=== PATIENT | female | born 1950 | race Caucasian/White ===

== ENCOUNTER 2016-05-14 08:09 | Day surgery (SDC) | payer MEDICARE, OTHER ==
[~2016-05-14] VITALS: Ht 167.6 cm; Wt 82.5 kg
--- NOTE | 2016-05-14 07:29 | PCM.HPANE ---
Patient Data Surgeon Admitting Provider: Attending Provider:Pio Nicholson MD Primary Care Physician:Reggie Fuller MD Other Provider:Freya Painteringham Anesthesia Reason for Visit Colon Polyps, Dysphagia Ht/WT & BMI Body Mass Index Allergies Coded Allergies: methotrexate (Verified Allergy, Severe, seizure, 03/02/16) metoclopramide (Verified Allergy, Severe, SEIZURES, 03/02/16) SEIZURES. moxifloxacin HCl (Verified Allergy, Unknown, restlessness, 03/02/16) haloperidol (Verified Adverse Reaction, Severe, 03/02/16) disoriented, restless, "felt like I was going to " metronidazole (Verified Adverse Reaction, Intermediate, Diarrhea, nausea, vomiting, 03/02/16) Past Anesthesia History Anesthesia History: Denies:: Abnormal Airway, Anesthesia Reactions, Difficult Intubation Diabetes History Hx Diabetes?: Yes MRSA MRSA: No Medications Active Scripts oxyCODONE 5 Mg Tablet5-10 Mg PO Q4H PRN For Moderate Pain #10 TABLET Prov:Areli Pierson MD 02/17/[address] 40 Mg Tablet.dr40 Mg PO BID Ref 0 05/13/16 Glucagon HCl 1 Mg Vial1 Mg IJ 05/13/16 Epinephrine (Epipen 2-Irineo)0.3 Mg/0.3 Ml Auto.injct0.3 Mg IJ 05/13/16 Lorazepam (Ativan)1 Mg Tablet1 Mg PO HS PRN For Insomnia Ref 0 05/13/16 Alendronate 40 Mg Ztcbdr77 Mg PO WEEKLY Ref 0 05/13/16 Metoprolol Succinate ER (Toprol XL)25 Mg Grgelo44 Mg PO DAILY Ref 0 05/13/16 Prednisone (PredniSONE)10 Mg Xvekxb89 Mg PO DAILY Ref 0 05/13/16 Levothyroxine 125 Mcg Zjbfdf095 Mcg PO fri/fri/fri/sat For Thyroid Replacement Ref 0 03/14/16 Cetirizine HCl (24Hour Allergy)10 Mg Hfbhyz93 Mg PO DAILY 03/14/16 Atorvastatin Calcium 40 Mg Flgwwe36 Mg PO DAILY Ref 0 03/14/16 Metoclopramide 10 Mg Pwoywi69 Mg PO TIDAC Ref 0 03/14/16 Sennosides (Senna)8.6 Mg Tablet1-3 Tablet PO PRN For Constipation 03/14/16 Fluticasone Propionate (Flovent Diskus)50 Mcg Disk.w.devUnknown Dose IH BID #1 INHALER Ref 0 03/02/16 Insulin Aspart (NovoLOG U-100 Pen)100 Unit/Ml Insuln.pen10 Units SC QID PRN bg > 300 #15 03/02/16 Insulin Aspart (NovoLOG U100 Insulin Vial)100 Unit/Ml Mdv1 Dose SC DIRECTED # 60 per insulin pump 03/02/16 Meloxicam (Mobic)7.5 Mg Tablet7.5 Mg PO BID 30 Days Ref 0 02/17/16 Albuterol Neb Soln 2.5 Mg/3 Ml Vial.neb2.5 Mg INHALATION Q4H Ref 0 02/17/16 Albuterol Sulfate (Ventolin HFA Inhaler)200 Puff/18 Gm Inhaler1 INH Q4H PRN For Wheezing #1 INHALER Ref 0 02/17/16 Montelukast (Singulair)10 Mg Rarqla82 Mg PO HS Ref 0 02/17/16 Lisinopril 20 Mg Dorfxq89 Mg PO HS 30 Days Ref 0 02/17/16 Levothyroxine (Synthroid)137 Mcg Wekqto117 Mcg PO tu/thur/goodson Ref 0 02/17/16 Discontinued Reported Medications Prednisone (PredniSONE)5 Mg Tab5 Mg PO DAILY Ref 0 04/04/16 Tramadol 50 Mg Ottyxa67 Mg PO Q4H PRN For Pain Ref 0 03/14/16 Sulfamethoxazole/Trimeth 800-160 mg (Bactrim DS)1 Each Tablet1 Tablet PO BID Ref 0 03/14/16 Temazepam 30 Mg Cap30 Mg PO HS PRN For Insomnia Ref 0 03/14/16 Lorazepam 1 Mg Tablet1 Mg PO DIRECTED PRN For Anxiety #10 03/02/16 Gabapentin (Neurontin)300 Mg Xoxsyhu124 Mg PO BID 30 Days Ref 0 03/02/16 Metoprolol Succinate ER 50 Mg Tab.er.24h25 Mg PO HS #45 03/02/16 History History of ENT Problems?: Yes HEENT History: Positive for:: Cataracts Dysphagia (feels like things get stuck) Denies:: Abnormal Airway Sinus Problem Hx of Heart Problems?: Yes Cardiovascular History: Positive for:: Chest Pain (chest pain this admit) Hypertension Irregular Heartbeat ("tachycardia" after tumor removal) Denies:: Cardiac Surgery Congestive Heart Failure Edema Heart Murmur Pacemaker Thrombophlebitis Hx of Respiratory Problem?: Yes Respiratory History: Positive for:: Asthma Chest Surgery (thoracotomy to remove tumor) Dyspnea Denies:: COPD Emphysema Hemoptysis Pneumonia Tuberculosis Hx Neurologic Problems?: Yes Neurological History: Positive for:: Dizziness Headaches Seizures (when given flagyl) Denies:: Alzheimer's Disease CVA Dementia Parkinson's Disease Hx of GI Problems?: Yes Gastrointestinal History: Positive for:: Diverticulitis Heartburn (occasionally) Denies:: Gastroesphageal Reflux Gastrointestinal Bleeding Hepatitis Hiatal Hernia Rectal Bleeding Hx of Problems?: Yes Genitourinary History: Positive for:: Urinary Tract Infection (frequent UTI, pyelonephritis) Denies:: HX of Hemodialysis Kidney Stones HX of Peritoneal Dialysis: No Female Hx: Positive for:: Endometriosis (hysterectomy 1985) Denies:: Currently Pelvic Inflammatory Problems with Breasts? Hx Musculoskeletal Problems?: Yes Musculoskeletal History: Positive for:: Back Injury Denies:: Joint Replacement Musculoskeletal Trauma Hx of Psycho/Social Problems?: Yes Psycho Social History: Positive for:: Anxiety (anxiety attack with MRI; after stressful life events) Denies:: Bipolar Disorder Hx Depression Suicide Attempt Hx Surgeries?: Yes (thoracotomy/hysterectomy/gallbladder/bowel resection/r&L rotator cuff) Hx Any Other Health Problems?: Yes Other History: Positive for:: Cancer (skin cancer) Hospitalization (surgeries) Thyroid Disease History Blood Transfusions: Positive for:: Blood Transfusions Denies:: Blood Transfuse Reaction Hx Diabetes: Yes Hx Alcohol Use: NoHx Substance Use: No Smoking Status: Never Smoker Have You Smoked inLast 12 mo: No Stop/Bang Treated for Sleep Apnea?: No Do You Have a CPAP Machine?: No JIM Risk Assessment: Low Risk, <3 Yes Risk Assessment Category Category 1A: Patient has history of documented sleep apnea, and HAS NOT received any narcotic, sedative or anesthesia administration during this stay. Category 1B: Patient has history of documented sleep apnea, and HAS received any narcotic , sedative or anesthesia administration during this stay Category 2: Patient has SUSPECTED Obstructive Sleep Apnea, and HAS received any narcotic , sedative or anesthesia administration during this stay. Category 3: Patient has SUSPECTED Obstructive Sleep Apnea and HAS NOT received narcotic, sedative or anesthesia administration during this stay. Category 4: Outpatient in Procedural Areas with known sleep apnea or who screen positive for High Risk via the STOP/BANG questionnaire. Exam Exam General Appearance: Alert, Oriented X3, Cooperative, No Acute Distress HEENT/AIRWAY: MP 2 Lungs: Clear to Auscultation, Normal Air Movement Heart: Exam Unremarkable, Regular Rate/Rhythm, No Murmurs/Rubs/Gallops Plan Impression Patient chart reviewed, patient interviewed and anesthestic plan with risks, benefits, and alternatives discussed, and informed consent obtained. ASA Physical Status: ASA2 Mod Systemic Disease Anesthetic Plan: MAC Bene/Risks/Altern/Consents: Yes HP Complete Prior to Induction: Yes Jerome Small MD May 14, 2016 07:29
[~2016-05-14 08:09] MED LIST: ALBU18HF INH; ALBU2.5V4 INHALATION; ALEN40TA2 PO; ATOR40TA69 PO; CETI-343 PO; EPIN0.3P2 IJ; FLUT50DI IH; GLUC1VIA4 IJ; INSU100I SC; LEVO125T6 PO; LEVO137T24 PO; LISI-567 PO; LORA-303 PO; Lactated Ringer's 1,000 ML IV ONE; MELO7.5T13 PO; METO10TA3 PO; METO25TA3 PO; MONT10TA20 PO; NOV100I SC; OXYC5TAB72 PO; PANT40TA3 PO; PRE10 PO; SENN-133 PO
[2016-05-14 08:28] VITALS: BP 127/68; PULSE 86; RESP 14; O2SAT 98
[2016-05-14] MEDS ORDERED: Lactated Ringer's 1,000 ML IV SCH (08:33)
[2016-05-14] MEDS ORDERED: Ondansetron 2 mg/mL 2 mL Inj IVPUSH PRN (08:35)
[2016-05-14 09:30] VITALS: BP 81/53; PULSE 83; RESP 17; O2SAT 96
[2016-05-14 09:40] VITALS: BP 97/65; PULSE 77; O2SAT 96
[2016-05-14 09:50] VITALS: BP 121/63; PULSE 71; O2SAT 100
--- NOTE | 2016-05-14 10:01 | ENDO ---
[address] [address] ENDOSCOPY PROCEDURE PATIENT: LEYDA PERLA : 1950 MR#: [id number] ADMIT: 05/14/2016 JOB ID: [id number] DATE OF SERVICE: 05/14/2016 PRIMARY PROVIDER: Kilo Fuller MD. PROCEDURE: 1. Esophagogastroduodenoscopy with biopsy. 2. Colonoscopy. INDICATIONS: A 66-year-old female with intermittent odynophagia and dysphagia mostly to liquids like water. She additionally has a remote history of colon polyps, and reports for surveillance. EQUIPMENT: GIF-H180 and a PCF-H180AL. SEDATION: Monitored anesthesia as provided by Dr. Jerome Small. COMPLICATIONS: None identified. BOWEL PREPARATION: Fair, adequate exam. PROCEDURE INFORMATION: After the risks and benefits were explained, written and verbal informed consent was obtained. The patient was brought into the endoscopy suite and placed into the left lateral decubitus position. Sedation was achieved as above. The scope was introduced into the mouth through the bite block, and advanced under direct visualization to the second portion of the duodenum. The scope was slowly withdrawn to carefully examine the mucosa for any defects or lesions. Retroflexed views were accomplished in the stomach. The stomach was decompressed. The scope removed from the patient who tolerated the procedure well. The patient was then turned around. A digital rectal examination was accomplished. The anal sphincter tone was considered relaxed but the patient was moderately sedated at that time. Mild internal hemorrhoids were noted. The scope was introduced into the rectum and advanced to the cecum as identified by the appendiceal orifice and ileocecal valve. The scope was slowly withdrawn to carefully examine the mucosa for any defects or lesions. Multiple direct views were made through the dentate line for exclusion of pathology. Retroflexed views were not accomplished as the patient did not really retain air during the exam. FINDINGS: 1. Duodenum: No significant pathology identified from the bulb through to the second portion. 2. Stomach: No outlet obstruction. No ulcers. No mass lesions. Mild gastropathy was seen throughout, and a random biopsy was taken for exclusion of helicobacter or any other underlying histopathology. Retroflexed views of the LES were otherwise unremarkable. 3. Esophagus: The squamocolumnar junction correlated with the top of the gastric folds. The GE junction was at 41 cm from the incisors. In the 4 o'clock location there was evidence of LA grade A erosive esophagitis right at the GE junction. No other pathology was seen throughout the esophagus. Specifically, no evidence of any infectious problem such as william. 4. Colon: The patient had very mild melanosis coli. There were some scattered right-sided diverticula. No significant polyps, mass lesions, or inflammatory features identified throughout. ENDOSCOPIC DIAGNOSES: 1. Armona grade A erosive esophagitis. 2. Minimal gastropathy. 3. Colonic diverticulosis. 4. Mild melanosis coli. 5. Hemorrhoids. RECOMMENDATIONS: 1. Await histopathology. 2. The patient is encouraged to increase her use of pantoprazole (I am told she only uses it about once per week on average). 3. Proceed with esophageal manometry and 24-hour pH on antisecretory therapy. 4. Follow up in GI clinic within a week or so of the pH and mano studies.
--- NOTE | 2016-05-14 15:36 | PCM.ANEP1 ---
Post Anesthesia Phase 1 PACU Phase 1 Assessment Vital Signs Vital Signs Date Time Temp Pulse Resp B/P Pulse Ox O2 Delivery O2 Flow Rate FiO2 05/14/16 09:50 71 121/63 100 Room Air 05/14/16 09:40 77 97/65 96 Room Air 05/14/16 09:30 36.4 83 17 81/53 96 Room Air 05/14/16 08:28 36.4 86 14 127/68 98 Room Air Anesthetic Administered: MAC Level of Alertness: Awake, talking YEE's with Equal Strength: Yes Pain: No Nausea or Vomiting: No Oxygen Delivery: Nasal Cannula Lungs: Clear to Auscultation, Normal Air Movement Dermatome Level: Full Sensation Jerome Small MD May 14, 2016 15:36
--- NOTE | 2016-05-14 15:38 | PCM.ANEP2 ---
Post Anesthesia Evaluation ASA/CMS Post Anesthesia VS in Patient's Normal Range?: Yes Resp Stable; Airway Patent?: Yes CV Function & Hydration Stable: Yes Mental Status Recovered?: Yes Pain control Satisfactory?: Yes N/V Control Satisfactory?: Yes Jerome Small MD May 14, 2016 15:38
--- NOTE | 2016-05-24 10:08 | PATH ---
SURGICAL PATHOLOGY Attending Physician:Beverly Varner CASE STATUS: Signed Out PATIENT NAME: LEYDA PERLA PID: [id number] : 1950 DATE COLLECTED:05/14/2016 15:35 SPECIMEN: Gastric, Biopsy CLINICAL HISTORY: RANDOM GASTRIC BIOPSY FINAL DIAGNOSIS: 1.RANDOM GASTRIC BIOPSY: FRAGMENTS OF GASTRIC FUNDIC MUCOSA, NEGATIVE FOR SIGNIFICANT INFLAMMATION. Negative for evidence of Helicobacter. Negative for intestinal metaplasia. Negative for dysplasia and malignancy. ICD10 code R10.13 GROSS DESCRIPTION: The specimen is received in one formalin filled container labeled with the patient's name, sublabeled "random gastric" and consists of a 0.2 x 0.2 x 0.1 CM portion of tissue which is entirely submitted in one cassette. 05/14/2016 DAC MICRO DESCRIPTION: See diagnosis. ICD-9 CODES: CPT CODES: 1: 01563 Electronically Signed Out Pio Wray MD [facility] [address] [facility], [place] [address] Technical component performed at [facility], [facility] [address], [place], [address]
== END 2016-05-14 23:59 | disposition home or self-care (01) ==
LOC: END 08:09
PROVIDERS: ATTEND Internal Medicine Gastroenterology
DX: Z12.11 Encounter for screening for malignant neoplasm of colon (principal); K57.30 Diverticulosis of large intestine without perforation or abscess without bleeding; K64.8 Other hemorrhoids; Z86.010 Personal history of colon polyps; Z80.0 Family history of malignant neoplasm of digestive organs; K63.89 Other specified diseases of intestine; K22.10 Ulcer of esophagus without bleeding; K31.9 Disease of stomach and duodenum, unspecified; I10 Essential (primary) hypertension; E78.5 Hyperlipidemia, unspecified; E03.9 Hypothyroidism, unspecified; G43.909 Migraine, unspecified, not intractable, without status migrainosus; E55.9 Vitamin D deficiency, unspecified; G47.30 Sleep apnea, unspecified; K21.9 Gastro-esophageal reflux disease without esophagitis; J45.909 Unspecified asthma, uncomplicated; E10.40 Type 1 diabetes mellitus with diabetic neuropathy, unspecified; M85.80 Other specified disorders of bone density and structure, unspecified site; Z79.51 Long term (current) use of inhaled steroids; Z79.52 Long term (current) use of systemic steroids; Z79.4 Long term (current) use of insulin; Z79.84 Long term (current) use of oral hypoglycemic drugs
CPT/HCPCS: 43239; G0105; J7120

== ENCOUNTER 2016-07-11 10:11 | Day surgery (SDC) | payer MEDICARE, OTHER ==
[~2016-07-11 10:11] MED LIST changes: -INSU100I SC; -LEVO137T24 PO; -Lactated Ringer's 1,000 ML IV ONE
[2016-07-11] MEDS ORDERED: Lidocaine Topical 2% 30 mL Jelly ONE (10:13)
== END 2016-07-11 23:59 | disposition home or self-care (01) ==
LOC: END 10:11
PROVIDERS: ATTEND Internal Medicine Gastroenterology
DX: K44.9 Diaphragmatic hernia without obstruction or gangrene (principal); R13.10 Dysphagia, unspecified